=== PATIENT | female | born 1955 | race Caucasian/White ===

== ENCOUNTER → 2016-11-25 | Outpatient (CLI) | payer OTHER ==
[~2016-11-25] MED LIST: AMBI10TA; ASPI81TA7 PO; BUPR75TA5 PO; ECOT81TA2 PO; ESCI20TA PO; GEMF600T PO; KLON1TAB OR; LEVO100T5 PO; MEGE40TA PO; MOTR200T40 PO; OMEP40CA2 PO; Prestiq; SIMV20TA2 PO; VALI5TAB; VICO5TAB16 PO; ZIPR80CAP; [UNRECOGNIZED DRUG - CODE]
--- NOTE | 2016-11-25 11:56 | REPMRS ---
Patient History The patient states she had a clinical breast exam in 05/2016.Patient is postmenopausal. Family history of colorectal cancer in father at age 80, unknown cancer in brother at age 60, and unknown cancer in brother at age 50 or over. Took hormonal contraceptives for 5 years. Took unspecified hormones for 2 years. Digital Mammo Screening Bilat: November 25, 2016 - Exam #: [id number] Bilateral CC and MLO view(s) were taken. Technologist: Anel Mehta, Technologist Prior study comparison: November 19, 2015, digital bilateral screening mammo, performed at [facility]. November 15, 2014, bilateral bilat screen digital mammo, performed at [facility] ([facility] November 14, 2013, bilateral bilat screen digital mammo, performed at [facility] ([facility] FINDINGS: There are scattered fibroglandular densities. There has been no change in the appearance of the mammogram from the prior studies. There is a mild amount of scattered fibroglandular density which is fairly symmetric. There is no interval development of dominant mass, architectural distortion, or clustered microcalcification suggestive of malignancy. ASSESSMENT: BI-RADS/ACR category 1 mammogram. Negative. Recommendation Routine screening mammogram in 1 year (for women over age 40). This mammogram was interpreted with the aid of an FDA-approved computer-aided dectection system. Electronically Signed By: Diogo Estrada MD 11/25/16 [id number]
== END | disposition home or self-care (01) ==
LOC: M RAD 10:48
PROVIDERS: ATTEND Obstetrics & Gynecology
DX: Z12.31 Encounter for screening mammogram for malignant neoplasm of breast (principal); Z78.0 Asymptomatic menopausal state; Z80.9 Family history of malignant neoplasm, unspecified; Z92.0 Personal history of contraception; Z92.29 Personal history of other drug therapy

== ENCOUNTER → 2017-01-29 | Outpatient (REF) | payer OTHER ==
[~2017-01-29] MED LIST changes: -ECOT81TA2 PO; +ECOT81TA5 PO; -MOTR200T40 PO; +MOTR200T44 PO
[2017-01-29 11:54] LABS: ALBUMIN 3.8 GM/DL (3.2-5.2); ALBUMIN/GLOBULIN RATIO 1.09 (1.00-1.93); BILIRUBIN,TOTAL 0.8 MG/DL (0.2-1.0); CALCIUM LEVEL 8.3 MG/DL (8.8-10.2); CREATININE FOR GFR 1.17 MG/DL (0.55-1.02); GLOMERULAR FILTRATION RATE 50.1 (>45); POTASSIUM SERUM 4.4 MEQ/L (3.5-5.1); TOTAL PROTEIN 7.3 GM/DL (6.4-8.2)
== END ==
LOC: M SFHCLERA 09:34
PROVIDERS: ATTEND Family Medicine
DX: E78.2 Mixed hyperlipidemia (principal)

== ENCOUNTER → 2017-12-04 | Outpatient (CLI) | payer OTHER | LOC: M RAD 08:55 | DX: Z12.31 Encounter for screening mammogram for malignant neoplasm of breast (principal) ==

== ENCOUNTER → 2018-05-11 | Outpatient (CLI) | payer OTHER | LOC: M RAD 14:53 | DX: N63.10 Unspecified lump in the right breast, unspecified quadrant (principal) | CPT/HCPCS: 77065 ==

== ENCOUNTER → 2018-11-01 | Outpatient (CLI) | payer OTHER ==
[~2018-11-01] MED LIST changes: +ASPI1TAB15 PO; -ASPI81TA7 PO; -GEMF600T PO; +GEMF600T5 PO; -MEGE40TA PO; +MEGE40TA18 PO
--- NOTE | 2018-11-01 11:00 | REP ---
Chest two views HISTORY: Cough Comparison: 11/21/2013 The lungs are clear. The heart is normal in size. The pulmonary vasculature is normal in appearance. The bony structure is intact. IMPRESSION: No acute disease. Electronically Signed by Davin Dupree MD 11/01/2018 10:51 A
== END ==
LOC: M WUC 10:40
PROVIDERS: ATTEND Nurse Practitioner Family
DX: R05 Cough (principal)

== ENCOUNTER → 2019-05-12 | Outpatient (CLI) | payer OTHER ==
[~2019-05-12] MED LIST changes: -VICO5TAB16 PO; +VICO5TAB17 PO
--- NOTE | 2019-05-12 10:14 | REP ---
BILATERAL SCREENING DIGITAL MAMMOGRAM WITH 3D TOMOSYNTHESIS: There are no palpable abnormalities or other breast complaints.The patient states she had a clinical breast examination 06/02/2019.The Tyrer Cuzick Score is: 7.0% Comparison is 11/15/2014. The breasts are heterogeneously dense, which could obscure small masses. There is no dominant mass, micro calcific cluster or architectural distortion that would indicate malignancy.There are no additional findings on 3D tomosynthesis.There is no change from the prior study. Impression: BIRADS/ACR category 1 mammogram. Negative. Recommendation: Routine annual screening mammography. Because of the increased breast density, annual adjunctive breast MRI in addition to screening mammography is recommended. This mammogram was interpreted with the aid of a FDA approved computer-aided detection system. A. Negative mammogram reports should not delay biopsy if a dominant or clinically suspicious mass is present.B. Not all breast cancers are identified by mammography or tomosynthesis.C. Adenosis and dense breasts may obscure an underlying neoplasm. Patient letter M1 dense breasts. Electronically Signed by Gaurav Benavides MD 05/12/2019 12:36 P
== END ==
LOC: M RAD 09:05
PROVIDERS: ATTEND Obstetrics & Gynecology
DX: Z12.31 Encounter for screening mammogram for malignant neoplasm of breast (principal)

== ENCOUNTER → 2019-06-22 | Outpatient (CLI) | payer OTHER ==
[~2019-06-22] MED LIST changes: -OMEP40CA2 PO; +OMEP40CA97 PO; -SIMV20TA2 PO; +SIMV20TA22 PO
--- NOTE | 2019-06-23 14:07 | DEXA ---
AP SPINE L1 - L4 1.229 0.3 1.8 LT FEMUR TOTAL 0.968 -0.3 0.8 LT NECK 0.844 -1.4 0.0 RT FEMUR TOTAL 0.953 -0.4 0.7 RT NECK 0.834 -1.5 -0.1 TOTAL BODY TOTAL OTHER COMMENTS: Normal bone densitometry of the spine. There is low bone density of the hips. FOLLOW-UP: Recommendation for the next bone density exam: 2 years. JERRI
== END ==
LOC: M WHC 09:12
PROVIDERS: ATTEND Obstetrics & Gynecology
DX: N95.1 Menopausal and female climacteric states (principal)

== ENCOUNTER → 2019-07-01 | Outpatient (CLI) | payer OTHER ==
[~2019-07-01] MED LIST changes: +OMEP40CA2 PO; -OMEP40CA97 PO; +PROHANCE 279.3MG/ML 15ML VIAL (A9576) As Ordered ONE; +PROHANCE 279.3MG/ML 5ML VIAL (A9576) As Ordered ONE; +SIMV20TA2 PO; -SIMV20TA22 PO
--- NOTE | 2019-07-01 12:46 | REP ---
BILATERAL BREAST MRI STUDY WITHOUT AND WITH IV GADOLINIUM: HISTORY: Inconclusive mammography. Dense tissue present mammographically. Comparison mammography May 12 2019. TECHNIQUE: 3 Jeimy MRI imaging was performed with a dedicated breast coil. Axial, coronal, and sagittal T1 and T2-weighted scans were obtained with and without fat saturation in the usual fashion. The study includes dynamically acquired post gadolinium enhanced imaging subtraction imaging. Maximal intensity projection and multiplanar re-formation imaging is included as well. The study was interpreted with the aid of [employer], an FDA approved computer-aided detection (CAD) software program, on a dedicated breast MRI work station. The gadolinium enhancement dose is 17 mL of intravenous ProHance. FINDINGS: There is a scattered pattern of fibroglandular elements bilaterally. Incidental note is made of a fairly large gallstone in the gallbladder. There is a subcentimeter cyst in the subareolar zone on the left superiorly at approximately 1-o'clock position. There is a mild pattern of background parenchymal enhancement. No significant morphologic abnormality is seen on pre- or postcontrast T1- and T2-weighted scans. There is no evidence of axillary adenopathy. Dynamically acquired sequential post contrast images show no suspicious focus of enhancement and/or washout in either breast to suggest malignancy. IMPRESSION: BIRADS category 2 benign findings. Repeat annual screening mammography recommended. Electronically Signed by Diego Estrada MD 07/01/2019 12:50 P
== END ==
LOC: M RAD 09:32
PROVIDERS: ATTEND Obstetrics & Gynecology
DX: R92.2 Inconclusive mammogram (principal); N60.02 Solitary cyst of left breast
CPT/HCPCS: A9576; C8908

== ENCOUNTER → 2020-05-14 | Outpatient (CLI) | payer OTHER ==
[~2020-05-14] MED LIST changes: -OMEP40CA2 PO; +OMEP40CA97 PO; -PROHANCE 279.3MG/ML 15ML VIAL (A9576) As Ordered ONE; -PROHANCE 279.3MG/ML 5ML VIAL (A9576) As Ordered ONE; -SIMV20TA2 PO; +SIMV20TA22 PO
--- NOTE | 2020-05-14 16:49 | REPMRS ---
Patient History The patient states she had a clinical breast exam in 2019. Family history of colorectal cancer at age 80 in father, unknown cancer at age 60 in brother, unknown cancer at age 50 or over in brother. Took hormonal contraceptives for 5 years. Took unspecified hormones for 2 years. Digital Woman Screen Mammo: May 14, 2020 - Exam #: [id number] Bilateral CC and MLO view(s) were taken. Technologist: Anel Mehta, Technologist Prior study comparison: May 12, 2019, bilateral digital mammo screening bilat, performed at [facility]. December 04, 2017, bilateral digital mammo screening bilat, performed at [facility]. November 25, 2016, bilateral digital mammo screening bilat, performed at [facility]. FINDINGS: There are scattered fibroglandular densities. The Volpara volumetric breast density category is:B. There has been no change in the appearance of the mammogram from the prior studies. There is a mild amount of scattered fibroglandular density which is fairly symmetric. There is no interval development of dominant mass, architectural distortion, or grouped microcalcification suggestive of malignancy. 3-D tomosynthesis shows no additional findings. Assessment: BI-RADS/ACR category 1 mammogram. Negative Mammogram. Recommendation Routine screening mammogram of both breasts in 1 year (for women over age 40). This patient's Lifetime Breast Cancer Risk is estimated at 6.7 %. This mammogram was interpreted with the aid of an FDA-approved computer-aided dectection system. Electronically Signed By: Diogo Estrada MD 05/14/20 [id number]
== END ==
LOC: M WHC 15:29
PROVIDERS: ATTEND Obstetrics & Gynecology
DX: Z12.31 Encounter for screening mammogram for malignant neoplasm of breast (principal)

== ENCOUNTER → 2020-12-31 | Outpatient (REF) | payer MEDICARE, OTHER ==
[~2020-12-31] MED LIST changes: +ASPI-546 PO; -ASPI1TAB15 PO; -ESCI20TA PO; +ESCI20TA16 PO
[2020-12-31 19:37] LABS: APPEARANCE, URINE CLEAR (CLEAR); BACTERIA, URINE AUTO NEGATIVE (NEGATIVE); BILIRUBIN, URINE AUTO NEGATIVE (NEGATIVE); BLOOD, URINE BLOOD 1+ (NEGATIVE); COLOR, URINE YELLOW (YELLOW); GLUCOSE, URINE (UA) AUTO NEGATIVE (NEGATIVE); KETONE, URINE AUTO NEGATIVE (NEGATIVE); LEUKOCYTE ESTERASE, URINE AUTO 3+ (NEGATIVE); NITRITE, URINE AUTO NEGATIVE (NEGATIVE); PROTEIN, URINE AUTO NEGATIVE (NEGATIVE); RBC, URINE AUTO 1 /HPF (0-3); SQUAMOUS EPITHELIAL CELL UR AU 2 /HPF (0-6); UROBILINOGEN, URINE AUTO 0.2 mg/dL (0.0-2.0); WBC, URINE AUTO 3 /HPF (0-3)
== END ==
LOC: M LAB REF 16:05
PROVIDERS: ATTEND Obstetrics & Gynecology
DX: N39.0 Urinary tract infection, site not specified (principal)

== ENCOUNTER → 2022-05-21 | Outpatient (CLI) | payer MEDICARE, OTHER ==
[~2022-05-21] MED LIST changes: +OMEP40CA4 PO; -OMEP40CA97 PO
== END ==
LOC: M WHC 09:13
PROVIDERS: ATTEND Obstetrics & Gynecology
DX: Z12.31 Encounter for screening mammogram for malignant neoplasm of breast (principal)

== ENCOUNTER → 2022-09-27 | Outpatient (REF) | payer MEDICARE, OTHER | LOC: M LAB REF 17:55 | PROVIDERS: ATTEND Physician Assistant | DX: J06.9 Acute upper respiratory infection, unspecified (principal) ==

== ENCOUNTER → 2023-04-10 | Outpatient (CLI) | payer MEDICARE, OTHER | LOC: M WUC 14:59 | PROVIDERS: ATTEND Nurse Practitioner Family | DX: M19.012 Primary osteoarthritis, left shoulder (principal) ==

== ENCOUNTER → 2023-05-29 | Outpatient (CLI) | payer MEDICARE, OTHER | LOC: M WHC 09:05 | PROVIDERS: ATTEND Nurse Practitioner Family | DX: Z12.31 Encounter for screening mammogram for malignant neoplasm of breast (principal) ==

== ENCOUNTER 2024-01-28 08:06 | Day surgery (SDC) | payer MEDICARE, OTHER ==
[~2024-01-28] VITALS: Ht 167.6 cm; Wt 85.7 kg
[~2024-01-28 08:06] MED LIST changes: +ARIP1TAB6 PO; +CALC600C3 PO; +CEQU0.09 OU; +CLON0.5T17 PO; +FLAX1CAP5 PO; +OMEP-173 PO; +PROBCAP14 PO; +TRAZ-189 PO; +ZOLO100T PO
[2024-01-28] MEDS: NS 1,000 ML IV ONE (08:26)
[2024-01-28 09:42] VITALS: TEMP 97.1
[2024-01-28] MEDS ORDERED: propofoL 500 MG/50 ML VIAL As Ordered ONE (09:52)
[2024-01-28 10:04] VITALS: BP 105/57; O2SAT 97
== END 2024-01-28 10:15 | disposition home or self-care (01) ==
LOC: M OPP 08:06
PROVIDERS: ATTEND Surgery
DX: Z12.11 Encounter for screening for malignant neoplasm of colon (principal); K21.00 Gastro-esophageal reflux disease with esophagitis, without bleeding; G47.30 Sleep apnea, unspecified; Z99.89 Dependence on other enabling machines and devices; Z79.02 Long term (current) use of antithrombotics/antiplatelets; Z79.1 Long term (current) use of non-steroidal anti-inflammatories (NSAID); Z79.82 Long term (current) use of aspirin; Z79.890 Hormone replacement therapy; Z79.899 Other long term (current) drug therapy
CPT/HCPCS: 43235; G0121

== ENCOUNTER → 2024-05-05 | Outpatient (CLI) | payer MEDICARE, OTHER | LOC: M WHC 08:56 | PROVIDERS: ATTEND Internal Medicine | DX: M81.0 Age-related osteoporosis without current pathological fracture (principal) ==

== ENCOUNTER → 2024-06-06 | Outpatient (CLI) | payer MEDICARE, OTHER | LOC: M WHC 11:01 | PROVIDERS: ATTEND Internal Medicine | DX: Z12.31 Encounter for screening mammogram for malignant neoplasm of breast (principal); R92.323 Mammographic fibroglandular density, bilateral breasts ==

== ENCOUNTER → 2024-09-01 | Outpatient (REF) | payer MEDICARE, OTHER | LOC: M SFHCWAGY 15:04 | PROVIDERS: ATTEND Nurse Practitioner Family | DX: Z12.72 Encounter for screening for malignant neoplasm of vagina (principal) ==

== ENCOUNTER → 2025-09-07 | Outpatient (CLI) | payer MEDICARE, OTHER ==
[~2025-09-07] MED LIST changes: +BUPR-363 PO; -BUPR75TA5 PO
== END ==
LOC: M WHC 09:50
PROVIDERS: ATTEND Nurse Practitioner Family
DX: Z12.31 Encounter for screening mammogram for malignant neoplasm of breast (principal); R92.323 Mammographic fibroglandular density, bilateral breasts

== ENCOUNTER → 2025-09-20 | Outpatient (CLI) | payer MEDICARE, OTHER | LOC: M WHC 14:14 | PROVIDERS: ATTEND Nurse Practitioner Family | DX: Z12.31 Encounter for screening mammogram for malignant neoplasm of breast (principal); R92.323 Mammographic fibroglandular density, bilateral breasts | CPT/HCPCS: 77065; G0279 ==